=== PATIENT | female | born 1965 | race Caucasian/White ===

== ENCOUNTER 2016-05-31 20:29 | Emergency (ER) | payer BC, OTHER | END 2016-05-31 22:27 | disposition home or self-care (01) | LOC: ER 20:29 | DX: R34 Anuria and oliguria (principal); R31.29 Other microscopic hematuria; E87.6 Hypokalemia; M54.5 Low back pain; F41.9 Anxiety disorder, unspecified; I10 Essential (primary) hypertension; Z88.8 Allergy status to other drugs, medicaments and biological substances; Z98.51 Tubal ligation status | CPT/HCPCS: 36415 ==

== ENCOUNTER 2016-08-09 12:12 | Emergency (ER) | payer OTHER | END 2016-08-09 13:50 | disposition home or self-care (01) | LOC: ER 12:12 | DX: M25.561 Pain in right knee (principal); I10 Essential (primary) hypertension; F32.9 Major depressive disorder, single episode, unspecified; Z79.899 Other long term (current) drug therapy; Z88.8 Allergy status to other drugs, medicaments and biological substances; W10.9XXA Fall (on) (from) unspecified stairs and steps, initial encounter; Y92.009 Unspecified place in unspecified non-institutional (private) residence as the place of occurrence of the external cause ==